=== PATIENT | female | born 1960 | race Caucasian/White ===

== ENCOUNTER → 2020-11-02 | Outpatient (CLI) | payer OTHER ==
[2020-11-02 09:44] LABS: BASO # 0.1 x10^3/uL (0.0-0.2); BASO % 1 % (0-3); EOS # 0.2 x10^3/uL (0.0-0.7); EOS % 4 % (0-3); HEMATOCRIT 41.5 % (36.0-47.0); HEMOGLOBIN 14.1 g/dL (12.0-15.5); LYMPH # 1.3 x10^3/uL (1.0-4.8); LYMPH % 26 % (24-48); MEAN CORPUSCULAR HEMOGLOBIN 32 pg (25-35); MEAN CORPUSCULAR HGB CONC 34 g/dL (31-37); MEAN CORPUSCULAR VOLUME 93 fL (79-100); MONO # 0.6 x10^3/uL (0.0-1.1); MONO % 12 % (0-9); NEUT % 58 % (31-73); PLATELET COUNT 249 x10^3/uL (140-400); RED BLOOD COUNT 4.47 x10^6/uL (3.50-5.40); RED CELL DISTRIBUTION WIDTH 12.5 % (11.5-14.5); WHITE BLOOD COUNT 5.2 x10^3/uL (4.0-11.0)
[2020-11-02 09:56] LABS: ALBUMIN 4.1 g/dL (3.4-5.0); ALBUMIN/GLOBULIN RATIO 1.1 (1.0-1.7); CALCIUM 9.4 mg/dL (8.5-10.1); CHOLESTEROL/HDL RATIO 2.2; CREATININE 0.6 mg/dL (0.6-1.0); GFR 101.3; POTASSIUM 3.9 mmol/L (3.5-5.1); TOTAL BILIRUBIN 0.4 mg/dL (0.2-1.0); TOTAL PROTEIN 7.7 g/dL (6.4-8.2)
[2020-11-03 00:53] LABS: HEMOGLOBIN A1C 6.8 % (4.8-5.6)
[2020-11-03 04:53] LABS: CREAT RD UR 23.9 mg/dL (Not Estab.); MICROALB RD UR 7.9 ug/mL (Not Estab.)
== END ==
LOC: LAB 08:54
PROVIDERS: ATTEND Family Medicine
DX: E11.9 Type 2 diabetes mellitus without complications (principal); E78.5 Hyperlipidemia, unspecified; E55.9 Vitamin D deficiency, unspecified; R10.9 Unspecified abdominal pain
CPT/HCPCS: 80053; 80061; 82043; 82150; 82306; 82570; 83036; 83690; 84443; 85025

== ENCOUNTER 2021-12-10 16:07 | Inpatient (IN) | payer OTHER ==
[2021-12-10] MEDS ORDERED: SIMV20TA18 PO (16:57)
[2021-12-10] MEDS ORDERED: IBUP200C9 PO (16:57)
[2021-12-10] MEDS ORDERED: AMLO10TA4 PO (16:57)
[2021-12-10] MEDS ORDERED: METF-658 PO (17:00)
[2021-12-10 19:00] VITALS: BP 142/77
[2021-12-10] MEDS ORDERED: SIMVASTATIN 20 MG TABLET PO SCH (21:00)
--- NOTE | 2021-12-10 21:14 | HP ---
DATE OF SERVICE: 12/10/2021 ADMIT DATE: 12/10/2021 CHIEF COMPLAINT: Abdominal pain and ileus. 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 She has been admitted over at [facility] for the past several days for an ileus. Her insurance company called me, they explained they need to transfer her here because she is out of network. She is now being examined on the medical floor where she is stable. PAST MEDICAL HISTORY: Diabetes, hypertension and periodic ileus. ALLERGIES: NONE. FAMILY HISTORY: Diabetes. SOCIAL HISTORY: She is an RN. Does not drink, smoke or take drugs. MEDICATIONS: Reviewed. Please refer to the MRAD. REVIEW OF SYSTEMS: GENERAL: No history of weight change, weakness or fevers. SKIN: No bruising, hair changes or rashes. EYES: No blurred, double or loss of vision. NOSE AND THROAT: No history of nosebleeds, hoarseness or sore throat. HEART: No history of palpitations, chest pain or shortness of breath on exertion. LUNGS: Denies cough, hemoptysis, wheezing or shortness of breath. GASTROINTESTINAL: Denies changes in appetite, nausea, vomiting, diarrhea or constipation. GENITOURINARY: No history of frequency, urgency, hesitancy or nocturia. NEUROLOGIC: Denies history of numbness, tingling, tremor or weakness. PSYCHIATRIC: No history of panic, anxiety or depression. ENDOCRINE: No history of heat or cold intolerance, polyuria or polydipsia. EXTREMITIES: Denies muscle weakness, joint pain, pain on walking or stiffness. PHYSICAL EXAMINATION: VITALS: Within normal limits and are stable. GENERAL: No apparent distress. Alert and oriented. HEENT: Normal cephalic atraumatic, external auditory canals are patent. EYES: Extraocular muscles are intact, pupils are equally round and reactive to light and accommodation. MUSCULOSKELETAL: Well developed, well nourished, good range of motion. ENDOCRINE: No thyromegaly was palpated. LYMPHATICS: No cervical chain or axillary nodes were noted. HEMATOPOIETIC: No bruising. NECK: Supple, no JVD, no thyromegaly was noted. LUNGS: Clear to auscultation in all lung sumner without rhonchi or wheezing. HEART: RRR, S1, S2 present. Peripheral pulses intact, no obvious murmurs were noted. ABDOMEN: Soft, nontender. Positive bowel sounds no organomegaly, normal bowel sounds. EXTREMITIES: Without any cyanosis, clubbing, or edema. Pedal pulses intact, Homans sign is negative. NEUROLOGIC: Normal speech, normal tone. A and O x3, moves all extremities, no obvious focal deficits. PSYCHIATRIC: Normal affect, normal mood. Stable. SKIN: No ulcerations or rashes, good skin turgor, no jaundice. VASCULAR: Good capillary refill, neurovascular bundle appears to be intact. ASSESSMENT AND PLAN: Resolving ileus. We have her on clear liquids. We are going to try to advance that. Home meds. Deep venous thrombosis prophylaxis. Full code. Hope to discharge tomorrow. LEXA/HALINA DR: LEXA/amandeep TID: [id number]
[2021-12-10 22:36] VITALS: BP 146/78
[2021-12-11 03:04] VITALS: BP 152/72
[2021-12-11 07:00] VITALS: BP 113/77
--- NOTE | 2021-12-11 10:21 | PDOC3 ---
Discharge Summary Visit Information Date of Admission: Dec 10, 2021 Date of Discharge: Dec 11, 2021 Final Diagnosis ileus, acute distention and abd pain, DM2 htn hyperlipids Brief Hospital Course Allergies Allergies Coded Allergies Type Severity Reaction Last Updated Verified No Known Drug Allergies 12/10/21 No Vital Signs Vital Signs Date Time Temp Pulse Resp B/P (MAP) Pulse Ox O2 Delivery O2 Flow Rate FiO2 12/11/21 09:24 67 113/77 12/11/21 08:00 Room Air 12/11/21 07:00 98.2 16 96 98.2 Lab Results Laboratory Tests Test 12/10/21 18:50 12/11/21 07:39 Glucose (Fingerstick) 141 mg/dL (70-99) 151 mg/dL (70-99) Laboratory Tests Test 12/10/21 18:50 12/11/21 07:39 Glucose (Fingerstick) 141 mg/dL (70-99) 151 mg/dL (70-99) Brief Hospital Course Ms. Ramirez is a 61 old [employer] employee transferred here from [facility], she was there for days with abd pain and bloating, DrSammi Wylie admit, Ileus noted, she felt well, bailee full liquid diet, diet could advance blood sugar 141, 151, had not gotten metofrmoni, she thought that was high for her Discharge Information Condition at Discharge: Improved Follow Up: Weeks Disposition/Orders: D/C to Home Scheduled Amlodipine Besylate (Norvasc) 10 Mg Tablet, 10 MG PO DAILY for HTN, (Reported) Entered as Reported by: AFSHIN ORELLANA on 12/10/211656 Last Taken: Unknown Dose on Unknown Date & Time Last Action: Continued on 12/10/211744 by AFSHIN ORELLANA Metformin Hcl (Metformin Hcl Er) 500 Mg Tab.er.24h, 1 TAB PO DAILYWSUP for diabe bert, (Reported) Entered as Reported by: AFSHIN ORELLANA on 12/10/211699 Last Taken: Unknown Dose on Unknown Date & Time Last Action: Continued on 12/10/211744 by AFSHIN ORELLANA Simvastatin (Simvastatin) 20 Mg Tablet, 20 MG PO HS for FOR CHOLESTEROL, #30 Ref 0 (Reported) Entered as Reported by: AFSHIN ORELLANA on 12/10/211656 Last Taken: Unknown Dose on Unknown Date & Time Last Action: Continued on 12/10/211744 by AFSHIN ORELLANA Scheduled PRN Ibuprofen (Advil) 200 Mg Capsule, 200 MG PO PRN PRN for PAIN, (Reported) Entered as Reported by: AFSHIN ORELLANA on 12/10/211656 Last Taken: Unknown Dose on Unknown Date & Time Last Action: New Order on 12/10/211656 by AFSHIN ORELLANA Justicifation of Admission Dx: Justifications for Admission: Justification of Admission Dx: Yes KANG VIEYRA MD Dec 11, 2021 10:21
[2021-12-11 11:00] VITALS: BP 143/78
--- NOTE | 2021-12-11 11:49 | NUR ---
Discharge Note: MEGHNA BILLY [address] Discharge instructions and discharge home medications reviewed with Patient and a copy given. All questions have been answered and understanding verbalized. The following instructions and handouts were given: follow up instructions Discontinued lines and drains: 20 guage right AC, tip intact. patient tolerated well. Patient discharged to home with self care via .
[2021-12-11] MEDS ORDERED: metFORMIN XR 500 MG TAB.ER.24H PO SCH (17:00)
== END 2021-12-11 12:25 | disposition home or self-care (01) | DRG 390 ==
LOC: 5 NORTH 16:07
PROVIDERS: ADMIT Internal Medicine; ATTEND Internal Medicine
DX: K56.7 Ileus, unspecified (principal); E11.9 Type 2 diabetes mellitus without complications; I10 Essential (primary) hypertension; E78.5 Hyperlipidemia, unspecified; Z83.3 Family history of diabetes mellitus
CPT/HCPCS: 82962; G0378

== ENCOUNTER → 2022-02-10 | Outpatient (CLI) | payer OTHER ==
[~2022-02-10] MED LIST: AMLO10TA4 PO; IBUP200C9 PO; METF-658 PO; SIMV20TA18 PO
--- NOTE | 2022-02-10 10:55 | KCIC ---
EXAM: DUAL ENERGY X-RAY ABSORPTIOMETRY (DEXA). HISTORY: Postmenopausal screening. FINDINGS: The lowest measured T-score is -3.0 in the left hip, based on a bone mineral density of 0.5 76 g/cm^2. Refer to the worksheets for full detail. No comparison examinations are available. IMPRESSION: 1. Osteoporosis. Bone mineral density yields a T-score of -2.5 or less. Fracture risk is high. 2. FRAX report: Not calculated. METHODOLOGY: Dual energy x-ray absorptiometry was performed to measure bone mineral density. The foll owing analysis is based on the 2019 Official Positions of the International Society for Clinical Dens itometry: Measurements of the hips and the average of L1-L4 are preferred. When the spine and/or hip cannot be feasibly measured or interpreted, or in the setting of hyperparathyroidism, distal radial bone minera l density may be measured. The lumbar spine T-score is based on the average bone mineral density of L1-L4. In the setting of art ifact or anatomic abnormality, some lumbar levels may be excluded, and the remaining levels used for calculation. A single lumbar level is not used for diagnosis, and if only a single level is available for assessment, another anatomic site will be used to assign a diagnosis. The hip T-score is based on the bone mineral density measurement of the femoral neck or total proxima l femur of either side, whichever is lowest. Bilateral mean values are not used for diagnosis. The forearm T-score is derived from 33% of the distal radius of the nondominant forearm. Electronically signed by: Bambi Morocho MD (02/10/2022 10:53 AM) [id number]
--- NOTE | 2022-02-10 11:44 | KCIC ---
Bilateral digital screening mammograms with 3-D tomosynthesis: Reason for examination: Routine screening. Comparison is made to previous studies dated 06/15/2017 and 11/30/2015. Bilateral mammograms in CC and oblique projections were obtained with 2-D imaging and 3-D tomosynthes is imaging on a Siemens Inspiration unit and reviewed on the workstation. Interpretation was made wit h the benefit of CAD. The skin and nipples show no abnormalities. No abnormal axillary lymph nodes are seen. The breast par enchyma is extremely dense. (Breast density: Category D.) There are no dominant masses, suspicious ca lcifications or architectural distortion. Impression: No evidence of malignancy. Recommend routine screening. Your patient's mammogram demonstrates that she has dense breast tissue (breast density category C or D), which could hide abnormalities, and if she has other risk factors for breast cancer that have bee n identified, she might benefit from supplemental screening tests that may be suggested by you as her ordering physician. Dense breast tissue, in and of itself, is a relatively common condition. Therefo re, this information is not provided to cause undue concern, but rather to raise your awareness and t o promote discussion with your patient regarding the presence of other risk factors, in addition to d ense breast tissue. Your patient's mammography results will be sent to her. BI-RAD Category 1: Negative. "Our facility is accredited by the [employer] Mammography Program." This patient's information has been entered into a reminder system for the patient to be notified wit h the results of her examination and a target date for the next mammogram. Electronically signed by: Amaya Metz MD (02/10/2022 11:41 AM) [id number]
== END ==
LOC: KCIC MAMMO 09:58
PROVIDERS: ATTEND Family Medicine
DX: Z12.31 Encounter for screening mammogram for malignant neoplasm of breast (principal); M81.0 Age-related osteoporosis without current pathological fracture; E28.39 Other primary ovarian failure
CPT/HCPCS: 77063; 77067; 77080